=== PATIENT | male | born 1940 | race Two or more races ===

== ENCOUNTER 2016-06-27 01:15 | Emergency (ER) | payer MEDICARE, OTHER ==
[2016-06-27] MEDS ORDERED: DIPHENHYDRAMINE 50 MG/ML VIAL ONE (02:20)
[2016-06-27] MEDS ORDERED: METHYLPRED SOD SUCC 125 MG/2 ML VIAL ONE (02:21)
== END 2016-06-27 03:37 | disposition home or self-care (01) ==
LOC: ER 01:15
DX: L50.9 Urticaria, unspecified (principal); Z87.891 Personal history of nicotine dependence
CPT/HCPCS: 96372; 99283; J2930